=== PATIENT | male | born 1970 | race Asian ===

== ENCOUNTER 2017-11-11 23:11 | Emergency (ER) | payer SELFPAY ==
[~2017-11-11] VITALS: Ht 172.7 cm; Wt 72.6 kg
[2017-11-11 23:18] VITALS: BP_SYST 140
[2017-11-12 06:41] VITALS: BP_SYST 127
== END 2017-11-12 06:41 | disposition home or self-care (01) ==
LOC: SED 23:11
DX: F10.129 Alcohol abuse with intoxication, unspecified (principal)
CPT/HCPCS: 99283